=== PATIENT | male | born 1965 | race African-American/Black ===

== ENCOUNTER → 2016-11-03 | Outpatient (CLI) | payer MEDICARE ==
[~2016-11-03] MED LIST: BRIN1TAB2 PO; OXYC-517 PO
[2016-11-03 11:09] LABS: INR 1.29
== END ==
LOC: M LAB 10:19
PROVIDERS: ATTEND Orthopaedic Surgery
DX: Z51.81 Encounter for therapeutic drug level monitoring (principal); Z79.01 Long term (current) use of anticoagulants; Z96.649 Presence of unspecified artificial hip joint

== ENCOUNTER 2016-11-04 11:23 | Emergency (ER) | payer MEDICARE ==
[~2016-11-04] VITALS: Ht 170.2 cm; Wt 108.0 kg
[2016-11-04] MEDS ORDERED: OXYC-517 PO (11:37)
[2016-11-04] MEDS ORDERED: BRIN1TAB2 PO (11:37)
[2016-11-04 12:52] VITALS: BP 142/93
== END 2016-11-04 13:06 | disposition home or self-care (01) ==
LOC: M ED 12:29
DX: Z79.899 Other long term (current) drug therapy (principal); Z95.9 Presence of cardiac and vascular implant and graft, unspecified; Z96.641 Presence of right artificial hip joint; Z96.611 Presence of right artificial shoulder joint; Z96.612 Presence of left artificial shoulder joint